=== PATIENT | female | born 1990 | race Caucasian/White ===

== ENCOUNTER 2016-07-20 10:14 | Emergency (ER) | payer OTHER ==
[2016-07-20 10:21] VITALS: BP 105/68
[2016-07-20 10:31] LABS: BILIRUBIN,URINE NEGATIVE (NEGATIVE)
[2016-07-20 10:32] LABS: UA CHARGE (STRIP ONLY) YES; UR CULTURE IF IND NOT INDICATED
[2016-07-20 10:33] LABS: HCG UR QUAL NEGATIVE
--- NOTE | 2016-07-20 10:53 | ED Physician Documentation ---
PD HPI FEMALE - Stated complaint Stated Complaint: FEMALE - Chief complaint Chief Complaint: UTI - History obtained from History obtained from: Patient - History of Present Illness Timing - onset: How many days ago (2) Timing - duration: Days (2) Timing - details: Gradual onset Associated symptoms: Dysuria, Urinary frequency. No: Vaginal pain, Vaginal bleeding, Vaginal discharge, Genital sore/lesion Contributing factors: Sexually active. 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 - Past Surgical History Past Surgical History: Yes - Present Medications Home Medications: Ambulatory Orders Medication Instructions Recorded Confirmed Metronidazole [Flagyl] 500 mg PO BID #20 tablet 07/20/16 - Allergies Allergies/Adverse Reactions: Allergies Allergy/AdvReac Type Severity Reaction Status Date / Time No Known Drug Allergies Allergy Verified 07/20/16 10:21 - Social History Does the pt smoke?: No Smoking Status: Never smoker PD ED PE NORMAL - Vitals Vital signs reviewed: Yes - General General: Alert and oriented X 3, No acute distress, Well developed/nourished - HEENT HEENT: Pharynx benign - Abdomen Abdomen: Normal bowel sounds, Soft, Non distended, No organomegaly, Other (mild tender suprpubic) - Female Female : Other (external normal. Vaginal vault with milky discharge with slight odor. mild cervicitis. ) - Derm Derm: Normal color, Warm and dry Results - Vitals Vitals: Oxygen O2 Source Room air - Labs Labs: Microbiology 07/20/16 12:10 Wet Prep - Final Vaginal Laboratory Tests 07/20/16 07/20/16 10:25 12:10 Urine Color LIGHT YELLOW Urine Clarity CLEAR Urine pH 7.0 Ur Specific [place] 1.010 Urine Protein NEGATIVE Urine Glucose (UA) NEGATIVE Urine Ketones NEGATIVE Urine Occult Blood NEGATIVE Urine Nitrite NEGATIVE Urine Bilirubin NEGATIVE Urine Urobilinogen 0.2 (NORMAL) Ur Leukocyte Esterase NEGATIVE Ur Microscopic Review NOT INDICATED Urine Culture Comments NOT INDICATED Urine HCG, Qual NEGATIVE C.trachomatis RNA (TMA) Negative N.gonorrhoeae RNA (TMA) Negative PD MEDICAL DECISION MAKING - ED course Complexity details: considered differential (UA is good, so dysuria thought maybe vaginal cause, pelvic showing likely BV.), d/w patient Departure - Departure Disposition: 01 Home, Self Care Clinical Impression: Bacterial vaginitis, Dysuria Condition: Stable Record reviewed to determine appropriate education?: Yes Instructions: ED Vaginosis Bacterial Prescriptions: Metronidazole [Flagyl] 500 mg PO BID #20 tablet Comments: Metronidazole twice daily for 10 days as prescribed. We will call if PCR/ culture results are abnormal in 2-3 days. If the test were to show GC, when you go for treatment, tell them to give a high dose Rocephin such as 500 mg or 1 g. Otherwise presume is bacterial vaginitis from non-STD germs. Discharge Date/Time: 07/20/16 12:38
[2016-07-20] MEDS ORDERED: metroNIDAZOLE 250 MG TABLET PO STA (12:15)
[2016-07-20] MEDS ORDERED: metroNIDAZOLE 250 MG TABLET PO ONE (12:21)
[2016-07-21 20:09] LABS: C.TRACHOMATIS BY TMA Negative (Negative); N.GONORRHOEAE BY TMA Negative (Negative)
== END 2016-07-20 12:38 | disposition home or self-care (01) ==
LOC: ED 10:14
DX: N76.0 Acute vaginitis (principal); B96.89 Other specified bacterial agents as the cause of diseases classified elsewhere; N72 Inflammatory disease of cervix uteri; R30.0 Dysuria
CPT/HCPCS: 81003; 81025; 87210; 87491; 87591; 99283; A9270; 81001; 87086